=== PATIENT | male | born 1940 | race Hispanic/Latino ===

== ENCOUNTER 2019-03-03 09:39 | Day surgery (SDC) | payer MEDICARE, BC ==
[2019-03-02 10:33] VITALS: BMI 26.6
[~2019-03-03 09:39] MED LIST: Fluorouracil 100 MG, Enoxaparin Sodium 25 MG, EPINEPHrine 0.3 MG in Ophthalmic Irrigati... IRR SCH
[2019-03-03] MEDS ORDERED: Triamcinolone 40 MG/ML VIAL ONE (09:49)
[2019-03-03] MEDS ORDERED: Indocyanine Green 25 MG/10 ML VIAL ONE (09:49)
[2019-03-03] MEDS ORDERED: Bupivacaine PF 0.75% SDV 10 ML ONE (09:49)
[2019-03-03] MEDS ORDERED: Lidocaine 1% PF 5 ML VIAL ONE (09:49)
[2019-03-03] MEDS ORDERED: Lidocaine 4% PF 5 ML AMP ONE (09:49)
[2019-03-03] MEDS ORDERED: Cyclopentolate 1% Opth Drop 2 ML BOT ONE (10:22)
[2019-03-03] MEDS ORDERED: Phenylephrine 2.5% Ophth Soln 5 ML BOT ONE (10:22)
[2019-03-03] MEDS ORDERED: Midazolam HCl 2 mg/2 ml Vial ONE (12:34)
[2019-03-03] MEDS ORDERED: Fentanyl 100 MCG/2 ML VIAL ONE (12:34)
[2019-03-03] MEDS ORDERED: PROPOFOL 20 ML ONE (12:34)
--- NOTE | 2019-03-03 19:59 | OP ---
DATE OF PROCEDURE: 03/03/2019 PREOPERATIVE DIAGNOSIS: Epiretinal membrane, left eye. POSTOPERATIVE DIAGNOSIS: Epiretinal membrane, left eye. PROCEDURE PERFORMED: Pars plana vitrectomy with epiretinal membrane peel, left eye. ANESTHESIA: Local with monitored anesthesia care. DESCRIPTION OF PROCEDURE: The patient was identified in the preoperative holding area. Appropriate informed consent for the planned surgical procedure on the left eye had been obtained. The patient was transported to the operative suite. Appropriate cardiopulmonary monitoring was established. Local anesthesia was obtained using retrobulbar block. The patient was prepped and draped in usual sterile manner for ophthalmic surgery on the left eye. Lid speculum was placed in the left eye. A 25-gauge trocar was placed in conjunctiva and sclera superotemporally, inferotemporally, and supranasally. Infusion line was placed inferotemporally. Light pipe and vitreous cutter were inserted into the eye. Core vitrectomy was performed. Indocyanine green dye was infused on the posterior pole x1, identifying the epiretinal membrane. This was elevated using end gripping forceps and peeled in one piece across the macula. Indirect ophthalmoscopy was used to examine the retina 360 degrees. No holes, breaks, or tears were identified. Prophylactic laser was placed behind the sclerotomy sites. Trocars removed. Eye was noted to retain pressure well. Retrobulbar Kenalog and subconjunctival Ancef were placed. Antibiotic ointment was placed. The eye was patched and shielded. The patient was taken to postoperative recovery unit in good condition, having suffered no immediate perioperative complications. The patient was instructed to keep patch and shield on, avoid lifting or bending, and followup appointment with Dr. Vo. Job ID: [id number]
== END 2019-03-03 14:25 | disposition home or self-care (01) ==
LOC: SDC 09:39
PROVIDERS: ATTEND Ophthalmology Retina Specialist
PROC: 08T53ZZ Resection of Left Vitreous, Percutaneous Approach (ICD-10-PCS; principal; 2019-03-03)
PROC: 08NF3ZZ Release Left Retina, Percutaneous Approach (ICD-10-PCS; 2019-03-03)
DX: H35.372 Puckering of macula, left eye (principal); Z88.2 Allergy status to sulfonamides
CPT/HCPCS: J0171; J1650; J2001; J2250; J2704; J3010; J3301; J3490; J9190

== ENCOUNTER 2021-02-08 12:48 | Outpatient (CLI) | payer MEDICARE, BC | END 2021-02-08 12:49 | disposition home or self-care (01) | LOC: ULT 12:48 | PROVIDERS: ATTEND Internal Medicine | DX: I42.9 Cardiomyopathy, unspecified (principal); I08.3 Combined rheumatic disorders of mitral, aortic and tricuspid valves | CPT/HCPCS: 93306 ==